=== PATIENT | female | born 1985 | race American Indian/Alaskan Native ===

== ENCOUNTER 2020-12-18 18:34 | Emergency (ER) | payer MEDICAID ==
[2020-12-18 18:52] VITALS: BP 130/86
--- NOTE | 2020-12-18 18:54 | Event Note ---
ED Screening Note ED Screening Note: g7 found out she is preg last week; not sure ho far along because she does not have regular periods co suprapubic and ruq pain; and dc no vag bleeding no dysuria no fever or chills no n/v/d has not seen obgyn ambulatory and non ill appearing in triage This initial assessment/diagnostic orders/clinical plan/treatment(s) is/are subject to change based on patients health status, clinical progression and re- assessment by fellow clinical providers in the ED. Further treatment and workup at subsequent clinical providers discretion. Patient/guardian urged not to elope from the ED as their condition may be serious if not clinically assessed and managed. Initial orders include: ro ab/ectopic/uti/g. bladder disease
[2020-12-18 19:17] LABS: Hematocrit 27.3 % (30.3-42.9); Hemoglobin 8.6 gm/dl (10.1-14.3); Mean Corpuscular HGB Conc 32 % (30-34); Platelet Count 250 K/mm3 (140-440); Red Blood Count 4.23 M/mm3 (3.65-5.03); Red Cell Distribution Width 18.4 % (13.2-15.2)
[2020-12-18 19:28] LABS: Bilirubin,Urine NEG (Negative); Blood,Urine NEG (Negative); Color,Urine Yellow (Yellow); Protein,Urine <15 mg/dL mg/dL (Negative)
[2020-12-18 19:29] LABS: Mean Corpuscular Volume 65 fl (79-97)
[2020-12-18 19:34] LABS: Alanine Aminotransferase 6 units/L (7-56); Albumin 4.2 g/dL (3.9-5); Blood Urea Nitrogen 5 mg/dL (7-17); Calcium 8.8 mg/dL (8.4-10.2); Hemolysis Index 2
[2020-12-18 19:38] LABS: BUN/Creatinine Ratio 8
--- NOTE | 2020-12-18 21:47 | Ultrasound Report ---
ULTRASOUND OBSTETRIC INDICATION / CLINICAL INFORMATION: pain in . Clinical Gestational Age (GA): 5.2 weeks.days TECHNIQUE: Transabdominal. COMPARISON: None available. FINDINGS: GESTATIONAL SAC: None visualized. YOLK SAC: Not visualized. EMBRYO/FETUS: None visualized. UTERUS: The uterus measures 8.1 x 4.6 x 6.0 cm and is normal in echogenicity. The endometrial stripe measures 14 mm in thickness. ADNEXA: The right ovary measures 2.8 x 1.4 x 1.1 cm and is normal in echogenicity. The left ovary lydia sures 3.8 x 2.7 x 2.8 cm and is normal in echogenicity. There is a 2.3 cm cyst arising from the left ovary likely representing a corpus luteal cyst. FREE FLUID: Trace free fluid is seen within the cul-de-sac. ADDITIONAL FINDINGS: None. IMPRESSION: 1. No intrauterine gestation is identified. 2. 2.3 cm left ovarian cyst likely represents a corpus luteal cyst. Signer Name: Juventino Zhong MD Signed: 12/18/2020 9:43 PM Workstation Name: [id number]
[2020-12-18 22:19] LABS: Total Cells Counted 100
[2020-12-18 22:20] LABS: Anisocytosis 1+; Band Neutrophils # (Manual) 0.1 K/mm3; Hypochromasia 2+; Large Platelets Rare; Platelet Estimate Cons; Tear Drop Cells Few
--- NOTE | 2020-12-18 22:41 | Emergency Department Report ---
ED General Adult HPI - General Chief complaint: Abdominal Pain Stated complaint: ABDOMINAL PAIN(PREG) LOW BACK Time Seen by Provider: 12/18/20 18:53 Source: patient Mode of arrival: Ambulatory Limitations: No Limitations - History of Present Illness Initial comments: 35-year-old -[place] female patient presents with complaints of mild vaginal bleeding and abdominal pain during starting yesterday. Patient states her last menstrual cycle was 11/11/2020. She is G7, P6. She is currently following with an CLINICAL NURSING ASSISTANT, however has not made an appointment yet. She denies any dysuria/hematuria, urinary frequency, vaginal discharge, dyspare unia, fever/chills/sweats, nausea/vomiting/diarrhea, or constipation. She rates her current pain as a 7/10 in severity. Patient states the pain radiates to her low back. She describes the pain as intermittent and crampy -: Sudden - Related Data Previous Rx's Medication Instructions Recorded Last Taken Type Acetaminophen/Codeine [Tylenol 1 tab PO Q8H PRN #4 tab 12/18/20 Unknown Rx /Codeine # 3 tab] Allergies Allergy/AdvReac Type Severity Reaction Status Date / Time Penicillins Allergy Hives Verified 12/18/20 18:49 NSAIDS (Non-Steroidal AdvReac Unknown Verified 12/18/20 18:49 Anti-Inflamma ED Review of Systems ROS: Stated complaint: ABDOMINAL PAIN(PREG) LOW BACK Other details as noted in HPI Constitutional: denies: chills, diaphoresis, fever, malaise Respiratory: denies: cough, shortness of breath Cardiovascular: denies: chest pain Gastrointestinal: abdominal pain. denies: nausea, vomiting Genitourinary: denies: urgency, dysuria, frequency, hematuria Skin: denies: lesions Hematological/Lymphatic: denies: swollen glands ED Past Medical Hx - Past Medical History Previous Medical History?: Yes Hx Asthma: Yes Additional medical history: cardiomyopathy - Surgical History Past Surgical History?: Yes Additional Surgical History: ; gastric bypass - Medications Home Medications: Home Medications Medication Instructions Recorded Confirmed Last Taken Type Acetaminophen/Codeine [Tylenol 1 tab PO Q8H PRN #4 tab 12/18/20 Unknown Rx /Codeine # 3 tab] ED Physical Exam - General Limitations: No Limitations General appearance: alert, in no apparent distress, obese - Head Head exam: Present: atraumatic, normocephalic - Eye Eye exam: Present: normal appearance. Absent: scleral icterus - Respiratory Respiratory exam: Absent: respiratory distress - Cardiovascular Cardiovascular Exam: Present: regular rate - GI/Abdominal GI/Abdominal exam: Present: soft, tenderness (Mild suprapubic tenderness to palpation noted), normal bowel sounds. Absent: distended, guarding, rebound, rigid - Extremities Exam Extremities exam: Present: full ROM - Back Exam Back exam: Present: full ROM, paraspinal tenderness (Lower lumbar). Absent: vertebral tenderness, other (No deformity noted) - Neurological Exam Neurological exam: Present: alert, oriented X3, normal gait - Psychiatric Psychiatric exam: Present: normal affect, normal mood - Skin Skin exam: Present: warm, dry, intact, normal color. Absent: rash, cyanosis, diaphoretic, ecchymosis ED Course Vital Signs 12/18/20 18:50 Temperature 98.4 F Pulse Rate 93 H Respiratory 18 Rate Blood Pressure 130/86 O2 Sat by Pulse 100 Oximetry ED Medical Decision Making - Lab Data Result diagrams: 12/18/20 18:57 12/18/20 18:57 - Radiology Data Radiology results: report reviewed ULTRASOUND OBSTETRIC INDICATION / CLINICAL INFORMATION: pain in . Clinical Gestational Age (GA): 5.2 weeks.days TECHNIQUE: Transabdominal. COMPARISON: None available. FINDINGS: GESTATIONAL SAC: None visualized. YOLK SAC: Not visualized. EMBRYO/FETUS: None visualized. UTERUS: The uterus measures 8.1 x 4.6 x 6.0 cm and is normal in echogenicity. The endometrial stripe measures 14 mm in thickness. ADNEXA: The right ovary measures 2.8 x 1.4 x 1.1 cm and is normal in echogenicity. The left ovary measures 3.8 x 2.7 x 2.8 cm and is normal in echogenicity. There is a 2.3 cm cyst arising from the left ovary likely representing a corpus luteal cyst. FREE FLUID: Trace free fluid is seen within the cul-de-sac. ADDITIONAL FINDINGS: None. IMPRESSION: 1. No intrauterine gestation is identified. 2. 2.3 cm left ovarian cyst likely represents a corpus luteal cyst. - Medical Decision Making 35-year-old -[place] female patient presents with complaints of mild vaginal bleeding and abdominal pain during starting yesterday. Patient states her last menstrual cycle was 11/11/2020. She is G7, P6. She is currently following with an CLINICAL NURSING ASSISTANT, however has not made an appointment yet. She denies any dysuria/hematuria, urinary frequency, vaginal discharge, dyspareunia, fever/chills/sweats, nausea/vomiting/diarrhea, or constipation. She rates her current pain as a 7/10 in severity. Patient states the pain radiates to her low back. She describes the pain as intermittent and crampy Beta-hCG noted to be 276. No significant abnormalities noted on UA or CMP. Chronic microcytic anemia noted on CBC. Ultrasound is negative for any acute abnormalities and does not show IUP at this time-likely due to early . Given back pain, recommend patient follows up within 3 days with her CLINICAL NURSING ASSISTANT. Also discussed in great detail signs and symptoms that should prompt immediate return to the emergency department in detail patient verbalizes understanding. She is well-appearing, her vitals are within normal limits, she is stable for discharge home. Patient states she is unable to take high doses of Tylenol due to previous gastric sleeve. Patient requesting medication for pain control. We will give a few Tylenol 3, however discussed importance of minimal use during - patient verbalized understanding Critical care attestation.: If time is entered above; I have spent that time in minutes in the direct care of this critically ill patient, excluding procedure time. ED Disposition Clinical Impression: Abdominal pain during in first trimester Disposition: DC-01 TO HOME OR SELFCARE Is pt being admited?: No Condition: Stable Instructions: Abdominal Pain (ED), Abdominal Pain During Additional Instructions: Please follow-up with your CLINICAL NURSING ASSISTANT within 3 to 5 days. If you develop any new or worsening symptoms seek immediate emergency treatment. Prescriptions: Acetaminophen/Codeine [Tylenol /Codeine # 3 tab] 1 tab PO Q8H PRN #4 tab PRN Reason: Pain , Severe (7-10)
== END 2020-12-18 23:33 | disposition home or self-care (01) ==
LOC: ED 18:34
DX: O26.891 Other specified pregnancy related conditions, first trimester (principal); R10.9 Unspecified abdominal pain; M54.5 Low back pain; J45.909 Unspecified asthma, uncomplicated; Z3A.01 Less than 8 weeks gestation of pregnancy; Z98.890 Other specified postprocedural states; Z79.899 Other long term (current) drug therapy; Z88.0 Allergy status to penicillin; Z88.6 Allergy status to analgesic agent
CPT/HCPCS: 36415; 76801; 76817; 80053; 81001; 83690; 84702; 85007; 85025; 86900; 86901